=== PATIENT | male | born 1950 | race Caucasian/White ===

== ENCOUNTER 2024-07-19 11:03 | Emergency (ER) | payer MEDICARE ==
[2024-07-19] MEDS ORDERED: Aspirin Chewable 81 MG TAB ONE (11:17)
[2024-07-19] MEDS ORDERED: Morphine 4 MG/ML VIAL ONE (11:28)
[2024-07-19 11:45] LABS: #Basophils 0.04 10x3/uL (0.0-0.2); #Eosinphils 0.08 10x3/uL (0.0-0.5); #Monocytes 0.87 10x3/uL (0.0-1.1); #Neutrophils 6.85 10x3/uL (1.5-8.4); %Basophils 0.4 % (0.0-2.0); %Eosinophils 0.9 % (0.0-6.0); %Lymphocytes 12.4 % (18.0-47.0); %Monocytes 9.6 % (0.0-10.0); %Neutrophils 75.6 % (40.0-75.0); Hematocrit 44.8 % (38.8-50.0); Hemoglobin 15.2 g/dL (13.5-17.5); Mean Corpuscular HGB CONC 33.9 g/dL (32.0-36.0); Mean Corpuscular Hemoglobin 29.3 pg (27.0-33.0); Mean Corpuscular Volume 86.3 fL (81.2-95.1); Mean Platelet Volume 9.2 fL (7.4-10.4); Platelet Count 208 10x3/uL (150-450); Red Blood Cell (RBC) Count 5.19 10x6/uL (4.32-5.72); White Blood Cell (WBC) Count 9.1 10x3/uL (3.5-10.5)
[2024-07-19 12:12] LABS: ALT (SGPT) 22 U/L (8-55); AST (SGOT) 23 U/L (5-34); Albumin 3.8 g/dL (3.4-4.8); Alkaline Phosphatase 53 U/L (40-110); Anion Gap 15 mmol/L (10-20); BUN (Urea Nitrogen) 13 mg/dL (8.4-25.7); Bilirubin, Total 1.3 mg/dL (0.2-1.2); Calc. Creatinine Clearance 0 mL/min (70-130); Calcium 9.1 mg/dL (7.8-10.44); Carbon Dioxide 22 mmol/L (23-31); Chloride 108 mmol/L (98-107); Estimated GFR 72; Globulin 3.3 g/dL (2.4-3.5); Glucose 178 mg/dL (83-110); Potassium 4.4 mmol/L (3.5-5.1); Protein, Total 7.1 g/dL (5.8-8.1); Sodium 141 mmol/L (136-145)
[2024-07-19 12:21] LABS: Troponin I 0.684 ng/mL (< 0.028)
[2024-07-19] MEDS ORDERED: Heparin 25,000 UNITS/D5W 500 ml bag ONE (13:35)
[2024-07-19] MEDS ORDERED: Heparin 10,000 UNITS/ 10 ML VIAL ONE (13:35)
== END 2024-07-19 11:53 | disposition short-term general hospital (02) ==
LOC: CSHERS 11:03
DX: I21.3 ST elevation (STEMI) myocardial infarction of unspecified site (principal); I10 Essential (primary) hypertension; E11.40 Type 2 diabetes mellitus with diabetic neuropathy, unspecified; J44.9 Chronic obstructive pulmonary disease, unspecified
CPT/HCPCS: 71045; 80053; 84484; 85025; 93005; J1644 ×2; J2272; 36415; 96374; 96375